=== PATIENT | male | born 1980 | race Caucasian/White ===

== ENCOUNTER 2017-07-24 12:39 | Emergency (ER) | END 2017-07-24 14:59 | disposition left against medical advice (07) ==

== ENCOUNTER 2019-08-08 08:07 | Day surgery (SDC) | payer OTHER ==
[~2019-08-08] VITALS: Ht 180.3 cm; Wt 100.3 kg
[~2019-08-08 08:07] MED LIST: AZIT250 PO; AZIT500 PO; CODEINE COUGH SYRUP; CYCL10 PO; Cleocin HCl150 MG PO; DIPH50; HYDPAM50 PO; LORA2 PO; NAPR500 PO; Naprosyn500 MG PO; Norco 5-325 Ta1 EACH PO; OXYACE5T PO; PROCODE120 PO; Prednisone20 MG PO; RXLORA1 PO; RXOXYACE PO
--- NOTE | 2019-08-08 10:40 | NUR ---
Ambulatory in Day Surgery. Surgical site prepped with 2% Chlorhexidine cloth wipe. History, Chart, Medications and Allergies reviewed before start of procedure.Lungs clear T/O to Auscultation. Patient confirms NPO status and agrees with scheduled surgery. Pre-Op teaching done. Pt verbalizes understanding. Patient States Post-Procedure ride home has been arranged.
--- NOTE | 2019-08-08 15:31 | NUR ---
"DAY SURGERY RN | DISCHARGE VSS. A/O. DENIES NAUSEA. PAIN DECREASING. SITES C/D/I. DR. FRANZ SPOKE WITH PATIENT PRIOR TO DISCHARGE. NO ISSUES. DISCHARGE INSTRUCTIONS AND RX GIVEN TO PATIENT. GIRLFRIEND IS RIDE HOME. TAKEN TO FRONT ENTRANCE IN WHEELCHAIR."
== END 2019-08-09 22:44 | disposition home or self-care (01) ==
LOC: ORSCMMR 08:07 → ORD 10:30 → ORSCMMR 10:30
PROVIDERS: Surgery
PROC: 0YU54JZ Supplement Right Inguinal Region with Synthetic Substitute, Percutaneous Endoscopic Approach (ICD-10-PCS; principal; 2019-08-08 10:30)
PROC: 8E0W4CZ Robotic Assisted Procedure of Trunk Region, Percutaneous Endoscopic Approach (ICD-10-PCS; principal; 2019-08-08 10:30)
PROC: 0DNU4ZZ Release Omentum, Percutaneous Endoscopic Approach (ICD-10-PCS; principal; 2019-08-08 10:30)
DX: K40.30 Unilateral inguinal hernia, with obstruction, without gangrene, not specified as recurrent (principal); K66.0 Peritoneal adhesions (postprocedural) (postinfection); G47.33 Obstructive sleep apnea (adult) (pediatric); F17.210 Nicotine dependence, cigarettes, uncomplicated; K21.9 Gastro-esophageal reflux disease without esophagitis
CPT/HCPCS: 49650; S2900; C1781; J0690; J1100; J1885; J2250; J2405; J2704; J3010; J7120